=== PATIENT | female | born 1995 | race Hispanic/Latino ===

== ENCOUNTER 2017-08-24 18:36 | Emergency (ER) | payer MEDICAID, OTHER ==
[2017-08-24 19:17] LABS: APPEARANCE,URINE Clear (CLEAR); BILIRUBIN,URINE Negative (NEGATIVE); COLOR,URINE Dark Yellow (YELLOW); GLUCOSE, URINE (UA) Negative (NEGATIVE); KETONES,URINE Negative (NEGATIVE); LEUKOCYTE ESTERASE ,URINE Large (NEGATIVE); NITRATE,URINE Positive (NEGATIVE); OCCULT BLOOD,URINE Small (NEGATIVE); PH,URINE 6.5 (5.0-8.0); PROTEIN,URINE Negative (NEGATIVE)
[2017-08-24 19:24] LABS: AMPHET/METH SCREEN,URINE NEGATIVE (NEGATIVE); BARBITURATE SCREEN, URINE NEGATIVE (NEGATIVE); BENZODIAZEPINES SCREEN,URINE NEGATIVE (NEGATIVE); CANNABINOID SCREEN,URINE NEGATIVE (NEGATIVE); COCAINE SCREEN,URINE NEGATIVE (NEGATIVE); OPIATE SCREEN,URINE NEGATIVE (NEGATIVE); PHENCYCLIDINE SCREEN,URINE NEGATIVE (NEGATIVE)
[2017-08-24 19:34] LABS: HCG,QUAL RESULT NEGATIVE (NEGATIVE)
[2017-08-24] MEDS ORDERED: KETOROLAC TROMETHAMINE 30MG/ML ONE (19:44)
[2017-08-24] MEDS ORDERED: CEFTRIAXONE SODIUM 1 GM ONE (19:44)
[2017-08-24] MEDS ORDERED: LIDOCAINE HCL-MPF 1% 2ML VIAL ONE (19:44)
[2017-08-24 20:12] LABS: BACTERIA,URINE Few /HPF (None Seen); MUCUS,URINE Rare LPF (None Seen); SQUAMOUS EPITHELIAL CELL,UR Rare /LPF (0-2)
== END 2017-08-24 20:37 | disposition home or self-care (01) ==
LOC: EDH 18:36
DX: N39.0 Urinary tract infection, site not specified (principal); M54.5 Low back pain; Z72.0 Tobacco use
CPT/HCPCS: 80305; 81001; 81025; 96372 ×2; 99284; J0696; J1885; J3490

== ENCOUNTER 2018-08-15 18:27 | Emergency (ER) | payer SELFPAY ==
[2018-08-16] MEDS ORDERED: ACETAMINOPHEN 325 MG TAB ONE (00:57)
== END 2018-08-15 20:04 | disposition left against medical advice (07) ==
LOC: EDH 18:27

== ENCOUNTER 2019-05-22 12:30 | Emergency (ER) | payer MEDICAID ==
[2019-05-22 13:17] LABS: BASOPHILS % (AUTO) 0.2 % (0.0-5.0); EOSINOPHILS % (AUTO) 0.4 % (0.0-8.0); HEMATOCRIT 38.9 % (36-48); MEAN CORPUSCULAR HEMOGLOBIN 30.1 pg (27.0-33.0); MEAN CORPUSCULAR VOLUME 88.5 fL (79-99); MONOCYTES % (AUTO) 5.8 % (3.0-13.0); NEUTROPHILS % (AUTO) 77.6 % (40.0-77.0); PLATELET COUNT (AUTO) 281 K/uL (130-400); RED BLOOD CELL COUNT(AUTO) 4.39 MIL/uL (4.00-5.50); RED CELL DISTRIBUTION WIDTH 13.3 % (11.0-15.5); WHITE BLOOD COUNT (AUTO) 12.8 K/uL (4.8-10.8)
[2019-05-22 13:25] LABS: CREATININE 0.5 mg/dL (0.5-1.5); POTASSIUM 4.4 mmol/L (3.5-5.1)
[2019-05-22 13:27] LABS: INR 0.96 (0.85-1.15); PARTIAL THROMBOPLASTIN TIME 27.5 SEC (26.3-35.5); PROTHROMBIN TIME 10.1 SEC (9.6-11.6)
[2019-05-22 13:29] LABS: ALBUMIN 3.8 g/dL (3.5-5.0); BILIRUBIN,TOTAL 0.2 mg/dL (0.2-1.0); TOTAL PROTEIN, SERUM 7.5 g/dL (6.0-8.3)
[2019-05-22 13:30] LABS: APPEARANCE,URINE Clear (CLEAR); BILIRUBIN,URINE Negative (NEGATIVE); COLOR,URINE Dark Yellow (YELLOW); GLUCOSE, URINE (UA) Negative (NEGATIVE); KETONES,URINE Trace mg/dL (NEGATIVE); LEUKOCYTE ESTERASE ,URINE Negative (NEGATIVE); NITRATE,URINE Negative (NEGATIVE); OCCULT BLOOD,URINE Negative (NEGATIVE); PH,URINE 5.5 (5.0-8.0); PROTEIN,URINE Negative (NEGATIVE); UROBILINOGEN,URINE 0.2 mg/dL (0.2-1.0)
[2019-05-22 13:33] LABS: HCG,QUAL RESULT POSITIVE (NEGATIVE)
== END 2019-05-22 16:41 | disposition home or self-care (01) ==
LOC: EDH 12:30
DX: O26.891 Other specified pregnancy related conditions, first trimester (principal); R10.2 Pelvic and perineal pain; R19.7 Diarrhea, unspecified; R35.0 Frequency of micturition; Z3A.08 8 weeks gestation of pregnancy; Z87.891 Personal history of nicotine dependence
CPT/HCPCS: 36415; 76801; 80053; 81003; 81025; 84702; 85025; 85610; 85730; 86900; 86901

== ENCOUNTER 2023-06-14 02:09 | Emergency (ER) | payer MEDICAID ==
[~2023-06-14] VITALS: Ht 157.5 cm; Wt 54.0 kg
[2023-06-14 02:10] VITALS: BP 109/75; PULSE 127; RESP 20
[2023-06-14 02:30] LABS: RAPID GROUP A STREP negative (NEGATIVE)
[2023-06-14 02:36] LABS: SARS-CoV-2, RNA, NAAT NEGATIVE SARS CoV-2 (NEGATIVE)
[2023-06-14 02:40] LABS: INFLUENZA TYPE A Negative For Type A (NEGATIVE)
[2023-06-14 02:49] LABS: INFLUENZA TYPE B Positive For Type B (NEGATIVE)
[2023-06-14] MEDS ORDERED: IBUP-1493 PO (02:54)
[2023-06-14] MEDS ORDERED: OSEL75 PO (02:54)
[2023-06-14] MEDS ORDERED: ONDA-104 PO (02:54)
[2023-06-14] MEDS ORDERED: ACETAMINOPHEN 500 MG TABLET PO ONE (03:00)
[2023-06-14 03:46] VITALS: TEMP 99.1
== END 2023-06-14 03:51 | disposition home or self-care (01) ==
LOC: EDH 02:09
DX: J10.1 Influenza due to other identified influenza virus with other respiratory manifestations (principal); Z20.822 Contact with and (suspected) exposure to COVID-19
CPT/HCPCS: 99283; 87635; 87880; 87804 ×2; C9803